=== PATIENT | female | born 1960 | race Caucasian/White ===

== ENCOUNTER → 2017-10-31 | Day surgery (SDC) | payer MEDICARE, BC ==
[2017-10-30 08:53] VITALS: BMI 29.2
[~2017-10-31] MED LIST: Fentanyl 100 MCG/2 ML VIAL ONE; Midazolam HCl 2 mg/2 ml Vial ONE; Sodium Bicarbonate 2.5 MEQ/5 ML VIAL ONE
[2017-10-31 08:00] LABS: #Eosinphils 0.1 thou/uL (0.0-0.7); #Lymphocytes 1.3 thou/uL (1.20-3.40); #Monocytes 0.7 thou/uL (0.11-0.59); #Neutrophils 2.8 thou/uL (1.40-6.50); %Basophils 0.5 % (0.0-1.0); %Lymphocytes 26.7 % (21.0-51.0); %Monocytes 14.4 % (0.0-10.0); %Neutrophils 56.4 % (42.0-75.0); Hemoglobin 14.1 g/dL (12.0-16.0); Mean Corpuscular HGB CONC 32.7 g/dL (32.0-36.0); Mean Corpuscular Hemoglobin 25.8 pg (27.0-31.0); Mean Platelet Volume 7.7 fL (7.4-10.4); Platelet Count 179 thou/uL (130-400); RBC Distribution Width 13.1 % (11.5-14.5); Red Blood Cell (RBC) Count 5.46 mill/uL (4.20-5.40)
[2017-10-31 08:09] LABS: PTT 30.3 SEC (22.9-36.1); Prothrombin Time 13.3 SEC (12.0-14.7)
[2017-10-31 08:46] VITALS: TEMP 97.6
--- NOTE | 2017-10-31 12:55 | CT ---
ABDOMEN CT WITHOUT CONTRAST: PELVIS CT WITHOUT CONTRAST: HISTORY: Status post liver biopsy. The patient is having pain. COMPARISON: None. TECHNIQUE: An abdomen and pelvis CT is performed without IV or oral contrast. Coronal reformatted images are sommer bmitted for interpretation. FINDINGS: ABDOMEN: Patchy opacities in the lung bases may represent chronic change with a superimposed infiltr ate in the left lower lobe. Heart size is normal. No pericardial effusion. The visualized aorta doss s a normal caliber. No paraaortic fat stranding. Note is made of a hiatal hernia. There is evidenc e of previous bariatric surgical change. No evidence of bowel obstruction. Scattered fecal material in a nondistended, nondilated colon. Normal ileocecal junction. No evidence of appendicitis. Limited evaluation of the solid organs due to lack of IV contrast. The spleen, pancreas, and adrenal glands are unremarkable. The gallbladder is surgically absent. Exophytic hypodensity emanating from the upper pole of the left kidney is too small to characterize b ut is statically favored to be a cyst. Bilaterally, no obstructive uropathy. There appears to be du plication of a portion of the right intrarenal and extrarenal collecting system, incompletely evaluat ed. With regard to the liver, there is grossly normal attenuation. No obvious evidence of intraparenchym al hemorrhage. There are small foci of air attenuation in the periphery of the liver, along the left and right hepatic lobes, which may represent iatrogenic air or may represent [place]. No obvious pe rihepatic fluid or hematoma. No significant intraparenchymal hemorrhage or hematoma. A trace amount of fluid at the tip of the liver is noted, which is of no clinical significance. There may be a tra ce amount of fluid in the perihepatic space, anteriorly and near the hepatic dome. This is of doubtf ul significance. PELVIS: No mass, lymphadenopathy, free air, or free fluid. The urinary bladder is unremarkable. No lytic or blastic lesions within the osseous structures. IMPRESSION: 1. No acute abnormality in the abdomen or pelvis. 2. No post procedure change. 3. No evidence of perihepatic hemorrhage/hematoma or intraparenchymal hemorrhage or hematoma. POS: [facility]
--- NOTE | 2017-10-31 14:13 | ULT ---
ULTRASOUND GUIDED RANDOM RIGHT HEPATIC LOBE BIOPSY: Date: 10-31-17 History: Elevated liver function test. Technique: The procedure including risks and complications were explained to the patient and informed consent wa s obtained. Patient was placed on the sonography table in the supine position. Limited sonographic ev aluation of the liver was performed. An area in the midaxillary line right upper quadrant was marked and then prepped and draped in the usual sterile fashion. Conscious sedation was performed with the i ntravenous administration of the Fentanyl and Versed during the exam. Skin and subcutaneous tissues at the intended puncture site were infiltrated with buffered 1% Lidocai ne for local anesthesia. Small skin incision was made. Utilizing concurrent real-time ultrasound guid ance, a 17 gauge guide needle was advanced into the most peripheral aspect of the right hepatic lobe. Utilizing coaxial technique, a single 18 gauge core needle biopsy specimen was obtained. Small amoun t of gel form was placed along the needle tract. Hemostasis was then achieved with direct pressure fo r approximately 10 minutes. Limited sonographic evaluation after biopsy and manual compression demons trates no perihepatic fluid collection or hematoma. Patient's vital signs remained stable during the procedure as well as post procedure. Dry sterile dressing was placed at puncture site. Patient was then placed in a right lateral decubitus position for one hour. Patient did develop abdom inal discomfort after the procedure and as a result, a noncontrast CT scan of the abdomen and pelvis was performed. The CT examination demonstrated punctate foci of gas adjacent to the right hepatic lob e laterally, but no hemorrhage or fluid is seen within the abdomen. Again, the patient's vital signs remained stable. Patient's pain eventually began to improve. Patient was then further monitored in [facility] radiology department prior to discharge. IMPRESSION: Technically successful ultrasound guided random right hepatic lobe biopsy. POS: [facility]
== END ==
LOC: ULT 07:32
PROVIDERS: ATTEND Internal Medicine Gastroenterology
PROC: BF45ZZZ Ultrasonography of Liver (ICD-10-PCS; principal; 2017-10-31)
PROC: 0FB13ZX Excision of Right Lobe Liver, Percutaneous Approach, Diagnostic (ICD-10-PCS; 2017-10-31)
DX: K76.89 Other specified diseases of liver (principal); L23.0 Allergic contact dermatitis due to metals; Z88.5 Allergy status to narcotic agent; Z79.899 Other long term (current) drug therapy; Z88.1 Allergy status to other antibiotic agents; Z87.891 Personal history of nicotine dependence
CPT/HCPCS: 36415; 47000; 74176; 76942; 85025; 85610; 85730; 88307; 88312; 88313; 99152; 99153; J2250; J3010

== ENCOUNTER 2017-12-11 12:46 | Outpatient (CLI) | payer MEDICARE, BC ==
--- NOTE | 2017-12-11 13:35 | RAD ---
CHEST PA AND LATERAL: HISTORY: A 57-year-old female with a history of dyspnea. COMPARISON: 10/06/2007 FINDINGS: Stable elevation of the right hemidiaphragm and right costophrenic angle blunting. Postoperative pasquale nges involving the lower cervical spine. Heart size is within normal limits. Lungs are clear. IMPRESSION: Stable elevation of the right hemidiaphragm and blunting of the right costophrenic angle. No acute i ntrathoracic disease. Postoperative changes of the lower cervical spine. POS: [facility]
== END 2017-12-11 12:47 | disposition home or self-care (01) ==
LOC: RAD 12:46
PROVIDERS: ATTEND Internal Medicine Critical Care Medicine
DX: J98.6 Disorders of diaphragm (principal); Z98.890 Other specified postprocedural states
CPT/HCPCS: 71046

== ENCOUNTER 2018-07-03 08:46 | Outpatient (CLI) | payer MEDICARE, BC ==
--- NOTE | 2018-07-03 11:38 | ULT ---
HEPATIC ULTRASOUND WITH DOPPLER: (De Oliveira-scale, color-flow, and spectral Doppler) HISTORY: Abnormal liver function tests. Abdominal pain. FINDINGS: The liver demonstrates a homogeneous echotexture without focal mass. Prominent biliary ducts are see n. The patient is post cholecystectomy. The common duct measures 11 mm in diameter. The pancreas i s not well visualized due to overlying bowel gas. The spleen is normal in size, measuring 10 cm. No free fluid is seen. There is normal flow and spectral wave-forms in the hepatic and portal veins and the splenic vasculat ure. IMPRESSION: 1. Status post cholecystectomy with biliary ductal dilatation. 2. No evidence of a hepatic mass. POS: [facility]
== END 2018-07-03 08:47 | disposition home or self-care (01) ==
LOC: BICULT 08:46
PROVIDERS: ATTEND Internal Medicine Gastroenterology
DX: R74.8 Abnormal levels of other serum enzymes (principal); R10.84 Generalized abdominal pain; K83.8 Other specified diseases of biliary tract; Z90.49 Acquired absence of other specified parts of digestive tract
CPT/HCPCS: 36415; 76705; 80076; 82977; 84075